=== PATIENT | female | born 1995 | race African-American/Black ===

== ENCOUNTER 2017-10-10 16:03 | Emergency (ER) | payer OTHER ==
[2017-10-10 16:10] VITALS: BP 119/66; PULSE 106; TEMP 97.8; BMI 36.8
--- NOTE | 2017-10-10 16:17 | PDOC ---
History of Present Illness - General Chief Complaint: Respiratory Stated Complaint: FLU Time Seen by Provider: 10/10/17 16:11 History Source: Patient Exam Limitations: No Limitations - History of Present Illness Initial Comments: 10/10/17 18:20 Patient is a 22-year-old female with no past medical history of present emergency department today with 2 days of flulike symptoms. She states that she was seen in urgent care this morning where she was diagnosed with the flu. She was given Tamiflu at that time. Patient states she received a liter of fluids while at urgent care. This helped her symptoms but not entirely. She presents to the ER now because of headache and body aches and shortness of breath. Denies sore throat, ear pain, chest pain, palpitations, nausea, vomiting and diarrhea. Past History - Past Medical History Allergies/Adverse Reactions: Allergies Allergy/AdvReac Type Severity Reaction Status Date / Time No Known Allergies Allergy Verified 10/10/17 16:07 Home Medications: Ambulatory Orders Albuterol Sulfate Inhaler - [Ventolin HFA Inhaler -] 1 - 2 inh PO Q4H #1 inhaler 10/10/17 Guaifenesin AC [Robitussin AC] 10 ml PO Q6H #200 ml MDD 4 10/10/17 predniSONE [Deltasone -] 40 mg PO DAILY #8 tablet 10/10/17 COPD: No - Immunization History Immunization Up to Date: Yes - Suicide/Smoking/Psychosocial Hx Smoking History: Current every day smoker Number of Cigarettes Smoked Daily: 2 Information on smoking cessation initiated: Yes 'Breaking Loose' booklet given: 10/10/17 Hx Alcohol Use: No Drug/Substance Use Hx: No Review of Systems - Review of Systems Able to Perform ROS?: Yes Comments:: 10/10/17 16:14 CONSTITUTIONAL: (+) fever Tmax 103. Absent:chills, diaphoresis, generalized weakness, malaise, loss of appetite HEENT: (+) nasal congestion. Absent: rhinorrhea, throat pain, throat swelling, difficulty swallowing, mouth swelling, ear pain, eye pain, visual Changes CARDIOVASCULAR: Absent: chest pain, loss of consciousness, palpitations, irregular heart rate, peripheral edema RESPIRATORY: (+) productive cough, shortness of breath Absent: cough, shortness of breath, dyspnea with exertion, orthopnea, wheezing, stridor, hemoptysis GASTROINTESTINAL: Absent: abdominal pain, abdominal distension, nausea, vomiting, diarrhea, constipation, melena, hematochezia GENITOURINARY: Absent: dysuria, frequency, urgency, hesitancy, hematuria, flank pain, genital pain MUSCULOSKELETAL: Absent: myalgia, arthralgia, joint swelling SKIN: Absent: rash, itching, pallor NEUROLOGIC: Present: headache Absent: focal weakness or paresthesias, dizziness, unsteady gait, seizure, mental status changes, bladder or bowel incontinence PSYCHIATRIC: Absent: anxiety, depression, suicidal or homicidal ideation, hallucinations. Is the patient limited Amharic proficient: No *Physical Exam - Vital Signs Last Vital Signs Temp Pulse Resp BP Pulse Ox 97.8 F 106 H 18 119/66 100 10/10/17 16:07 10/10/17 16:07 10/10/17 16:07 10/10/17 16:07 10/10/17 16:07 - Physical Exam Comments: 10/10/17 16:14 GENERAL: Well developed, well nourished. Awake and alert. No acute distress. HEENT: Normocephalic, atraumatic. PERRLA, EOMI. No conjunctival pallor. Sclera are non- icteric. Moist mucous membranes. Oropharynx is clear. NECK: Supple. Full ROM. No JVD. Carotid pulses 2+ and symmetric, without bruits. No thyromegaly. No lymphadenopathy. CARDIOVASCULAR: Regular rate and rhythm. No murmurs, rubs, or gallops. Distal pulses are 2+ and symmetric. PULMONARY: No evidence of respiratory distress. Lungs clear to auscultation bilaterally. No wheezing, rales or rhonchi. ABDOMINAL: Soft. Non-tender. Non-distended. No rebound or guarding. No organomegaly. Normoactive bowel sounds. MUSCULOSKELETAL Normal range of motion at all joints. No bony deformities or tenderness. No CVA tenderness. EXTREMITIES: No cyanosis. No clubbing. No edema. No calf tenderness. SKIN: Warm and dry. Normal capillary refill. No rashes. No jaundice. NEUROLOGICAL: Alert, awake, appropriate. Cranial nerves 2-12 intact. No deficits to light touch and temperature in face, upper extremities and lower extremities. No motor deficits in the in face, upper extremities and lower extremities. Normoreflexic in the upper and lower extremities. Normal speech. Toes are down- going bilaterally. Gait is normal without ataxia. PSYCHIATRIC: Cooperative. Good eye contact. Appropriate mood and affect. Medical Decision Making - Medical Decision Making 10/10/17 18:24 Patient is 20-year-old female with 2 days of flulike symptoms currently on Tamiflu. We'll treat symptoms at this time. Urine was negative. Patient received 1 L of fluids, 30 mg of IV Toradol. Patient reports relief of her headache, bodyaches. Patient also received a DuoNeb for her difficulty breathing.. Lung sounds are clear patient reports feeling better. We'll discharge home at this time. Return precautions given. Patient understands all discharge instructions and all questions were answered. *DC/Admit/Observation/Transfer Diagnosis at time of Disposition: Flu-like symptoms - Discharge Dispostion Disposition: HOME Condition at time of disposition: Stable Admit: No - Prescriptions Prescriptions: Albuterol Sulfate Inhaler - [Ventolin HFA Inhaler -] 1 - 2 inh PO Q4H #1 inhaler Guaifenesin AC [Robitussin AC] 10 ml PO Q6H #200 ml MDD 4 predniSONE [Deltasone -] 40 mg PO DAILY #8 tablet - Referrals Referrals: Danni Manrique MD [Primary Care Provider] - - Patient Instructions Printed Discharge Instructions: DI for Influenza -- Adult Additional Instructions: You have the flu. This is a virus. You may have fevers/symptoms for approximately one week. She is normal. Please drink plenty of fluids. Please take the albuterol every 4 hours as needed for shortness of breath. Take the prednisone daily for the next 4 days. You may take the Robitussin with codeine every 6 hours as needed for cough. Do not drive after taking this medication as it may make you sleepy. Please take 800mg of Motrin every 8 hours for fevers, body aches, and headaches. Please follow up with her primary care doctor in 1 week. Return to the emergency department if you have worsening cough, difficulty breathing, shortness of breath, dehydration, or any changes in her symptoms. - Post Discharge Activity Forms/Work/School Notes: Back to Work
[2017-10-10] MEDS ORDERED: KETOROLAC TROMETHAMINE 30 MG/1 ML VIAL IVPUSH ONE (16:43)
[2017-10-10] MEDS ORDERED: SODIUM CHLORIDE 1,000 ML IV STA (16:43)
[2017-10-10] MEDS ORDERED: KETOROLAC TROMETHAMINE 30 MG/1 ML VIAL ONE (16:53)
[2017-10-10] MEDS ORDERED: ALBUTEROL SO4 2.5/IPRATROPIUM 0.5 INH SOL 3 ML VIAL.NEB. NEB ONE ×2 (17:00→17:02)
== END 2017-10-10 18:33 | disposition home or self-care (01) ==
LOC: JERFT 16:03
PROC: 3E0F7GC Introduction of Other Therapeutic Substance into Respiratory Tract, Via Natural or Artificial Opening (ICD-10-PCS; principal; 2017-10-10)
PROC: 3E0333Z Introduction of Anti-inflammatory into Peripheral Vein, Percutaneous Approach (ICD-10-PCS; 2017-10-10)
PROC: 3E0337Z Introduction of Electrolytic and Water Balance Substance into Peripheral Vein, Percutaneous Approach (ICD-10-PCS; 2017-10-10)
DX: J11.1 Influenza due to unidentified influenza virus with other respiratory manifestations (principal)
CPT/HCPCS: 84703; 99281-25